=== PATIENT | male | born 1935 | race Caucasian/White ===

== ENCOUNTER 2018-12-27 12:56 | Emergency (ER) | payer OTHER ==
[2018-12-27] MEDS ORDERED: TETANUS & DIPHTHERIA TOX,ADULT 0.5 ML VIAL ONE (13:24)
--- NOTE | 2018-12-27 13:47 | RAD REPORT ---
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 Soft ti ssue swelling is seen along the dorsum of the hand. No acute fracture or dislocation seen. Radiopaque foreign body is not detected.
--- NOTE | 2018-12-27 14:16 | ER ---
Nurse's Notes [facility] Name: Live Tabor Age: 83 yrs Sex: Male : 1935 Arrival Date: 12/27/2018 Time: 12:59 Bed 27 Private MD: Diagnosis: Abrasion of left hand;Laceration without foreign body of right hand;Contusion of right hand Presentation: 12/27 13:12 Presenting complaint: Patient states: R hand pain and swelling after injury that ss occurred two days ago. Small laceration noted to side of hand. No bleeding noted at this time. Transition of care: patient was not received from another setting of care. Onset of symptoms was December 25, 2018. Risk Assessment: Do you want to hurt yourself or someone else? Patient reports no desire to harm self or others. Initial Sepsis Screen: Does the patient meet any 2 criteria? No. Patient's initial sepsis screen is negative. Does the patient have a suspected source of infection? No. Patient's initial sepsis screen is negative. Care prior to arrival: None. 13:12 Method Of Arrival: Ambulatory ss 13:12 Acuity: DEBRA 4 ss Triage Assessment: 13:34 Injury Description:. ca1 Historical: - Allergies: 13:12 No Known Allergies; ss - Home Meds: 13:12 losartan oral oral [Active]; ss - PMHx: 13:12 Hypertension; ss - PSHx: 13:12 bilateral shoulder repair; ss - Immunization history:: Adult Immunizations up to date, Last tetanus immunization: < 5 years ago. - Social history:: Smoking status: Patient/guardian denies using tobacco. - Ebola Screening: : Patient denies exposure to infectious person Patient denies travel to an Ebola-affected area in the 21 days before illness onset. Screenin:24 Abuse screen: Denies threats or abuse. Denies injuries from another. Nutritional ca1 screening: No deficits noted. Tuberculosis screening: No symptoms or risk factors identified. Fall Risk None identified. Assessment: 13:32 General: Appears in no apparent distress. comfortable, Behavior is calm, cooperative, ca1 appropriate for age. Pain: Complains of pain in right hand Pain currently is 7 out of 10 on a pain scale. Neuro: Level of Consciousness is awake, alert, obeys commands, Oriented to person, place, time, situation. Cardiovascular: Heart tones S1 S2 present Capillary refill < 3 seconds Patient's skin is warm and dry. Respiratory: Airway is patent Respiratory effort is even, unlabored, Respiratory pattern is regular, symmetrical, Breath sounds are clear bilaterally. GI: Abdomen is round non-distended, Bowel sounds present X 4 quads. Abd is soft and non tender X 4 quads. : No deficits noted. No signs and/or symptoms were reported regarding the genitourinary system. EENT: No deficits noted. No signs and/or symptoms were reported regarding the EENT system. Derm: Skin is intact, is healthy with good turgor, Skin is pink, warm \T\ dry. Musculoskeletal: Circulation, motion, and sensation intact. Capillary refill < 3 seconds, Range of motion: limited in right wrist Swelling present in right hand. 13:32 Injury Description: Laceration sustained to outer aspect of right palm is clean, ca1 superficial, 0.5 to 2.5 cm long, was sustained 2 days ago. no active bleeding noted at this time. 13:33 Reassessment: Refused tetanus shot. Reports to have a tetanus shot 3 years ago. ca1 notified provider. 13:57 Reassessment: Patient appears in no apparent distress at this time. Patient and/or ca1 family updated on plan of care and expected duration. Pain level reassessed. Patient is alert, oriented x 3, equal unlabored respirations, skin warm/dry/pink. Vital Signs: 13:12 BP 123 / 89; Pulse 66; Resp 17; Temp 98.0(TE); Pulse Ox 97% on R/A; Weight 86.18 kg; ss Height 5 ft. 9 in. (175.26 cm); Pain 3/10; 13:57 BP 138 / 88; Pulse 67; Resp 16 S; Pulse Ox 98% on R/A; ca1 13:12 Body Mass Index 28.06 (86.18 kg, 175.26 cm) ED Course: 12:59 Patient arrived in ED. mr 13:12 Arm band placed on left wrist. ss 13:13 Triage completed. ss 13:16 Rosie Benavides FNP-C is [facility]. kb 13:16 Rosales Rdz MD is Attending Physician. kb 13:23 Kandy Cagle, JOSE is Primary Nurse. ca1 13:24 Patient has correct armband on for positive identification. Bed in low position. Call ca1 light in reach. Side rails up X 1. Pulse ox on. NIBP on. 13:24 No provider procedures requiring assistance completed. Patient did not have IV access ca1 during this emergency room visit. 13:33 Hand Right 3 View XRAY In Process Unspecified. EDMS 14:17 Wound care: to laceration located on outer aspect of right palm was cleaned with ca1 Betadine, Patient tolerated well. Steri strips applied. Administered Medications: 13:32 Not Given (Patient Refused; Pt reports he had a tetanus shot 3 years ago): ca1 Tetanus-Diphtheria Toxoid Adult 0.5 ml IM once Outcome: 14:15 Discharge ordered by . rosemary 14:25 Discharged to home ambulatory, with significant other. ca1 14:25 Condition: stable 14:25 Discharge instructions given to patient, Instructed on discharge instructions, follow up and referral plans. medication usage, wound care, Demonstrated understanding of instructions, follow-up care, medications, wound care, Prescriptions given X 1. 14:26 Patient left the ED. ca1 Signatures: Dispatcher [employer] EDMA Rosie Benavides, SERA LINK-Chantal Kirkland mr Nikki Alvarez, JOSE RN ss Kandy Cagle RN RN ca1 Corrections: (The following items were deleted from the chart) 14:12 13:32 Musculoskeletal: Circulation, motion, and sensation intact. Capillary refill < 3 ca1 seconds, Range of motion: limited in right wrist Swelling present in right hand ca1
--- NOTE | 2018-12-27 14:17 | EDPHYS ---
Physician Documentation [facility] Name: Live Tabor Age: 83 yrs Sex: Male : 1935 Arrival Date: 12/27/2018 Time: 12:59 Bed 27 Private MD: KETAN Physician Rosales Rdz HPI: 12/27 14:10 This 83 yrs old Male presents to ER via Ambulatory with complaints of Hand kb Injury. 14:10 The patient or guardian reports injury, swelling. The complaints affect the dorsum of kb right hand and palm of right hand. Context: The problem was sustained at home, resulted from a fall. Onset: The symptoms/episode began/occurred 2 day(s) ago. Modifying factors: The symptoms are alleviated by nothing, the symptoms are aggravated by nothing. Associated signs and symptoms: The patient has no apparent associated signs or symptoms. Severity of symptoms: At their worst the symptoms were moderate, in the emergency department the symptoms are unchanged. The patient has not experienced similar symptoms in the past. The patient has not recently seen a physician. Pt reports he fell 2 days ago. Came in today because he was concerned about swelling of right hand. Has 2cm laceration to left palm and abrasions to third through fifth digits on left hand. . Historical: - Allergies: 13:12 No Known Allergies; ss - Home Meds: 13:12 losartan oral oral [Active]; ss - PMHx: 13:12 Hypertension; ss - PSHx: 13:12 bilateral shoulder repair; ss - Immunization history:: Adult Immunizations up to date, Last tetanus immunization: < 5 years ago. - Social history:: Smoking status: Patient/guardian denies using tobacco. - Ebola Screening: : Patient denies exposure to infectious person Patient denies travel to an Ebola-affected area in the 21 days before illness onset. ROS: 14:10 Constitutional: Negative for fever, chills, and weight loss, Neck: Negative for injury, kb pain, and swelling, Cardiovascular: Negative for chest pain, palpitations, and edema, Respiratory: Negative for shortness of breath, cough, wheezing, and pleuritic chest pain, Abdomen/GI: Negative for abdominal pain, nausea, vomiting, diarrhea, and constipation, Neuro: Negative for headache, weakness, numbness, tingling, and seizure. 14:10 Skin: Positive for abrasion(s), laceration(s), swelling. Exam: 14:13 Constitutional: This is a well developed, well nourished patient who is awake, alert, kb and in no acute distress. Head/Face: Normocephalic, atraumatic. Neck: Trachea midline, no thyromegaly or masses palpated, and no cervical lymphadenopathy. Supple, full range of motion without nuchal rigidity, or vertebral point tenderness. No Meningismus. Chest/axilla: Normal chest wall appearance and motion. Nontender with no deformity. No lesions are appreciated. Cardiovascular: Regular rate and rhythm with a normal S1 and S2. No gallops, murmurs, or rubs. Normal PMI, no JVD. No pulse deficits. Respiratory: Lungs have equal breath sounds bilaterally, clear to auscultation and percussion. No rales, rhonchi or wheezes noted. No increased work of breathing, no retractions or nasal flaring. Abdomen/GI: Soft, non-tender, with normal bowel sounds. No distension or tympany. No guarding or rebound. No evidence of tenderness throughout. Neuro: Awake and alert, GCS 15, oriented to person, place, time, and situation. Cranial nerves II-XII grossly intact. Motor strength 5/5 in all extremities. Sensory grossly intact. Cerebellar exam normal. Normal gait. 14:13 Musculoskeletal/extremity: Extremities: grossly normal except: noted in the right hand: laceration, pain, swelling, tenderness, noted in the palmar aspect of distal phalanx of left little finger, palmar aspect of distal phalanx of left ring finger and palmar aspect of distal phalanx of left middle finger: abrasion, ROM: no acute changes, Circulation is intact in all extremities. Sensation intact. Vital Signs: 13:12 BP 123 / 89; Pulse 66; Resp 17; Temp 98.0(TE); Pulse Ox 97% on R/A; Weight 86.18 kg; ss Height 5 ft. 9 in. (175.26 cm); Pain 3/10; 13:57 BP 138 / 88; Pulse 67; Resp 16 S; Pulse Ox 98% on R/A; ca1 13:12 Body Mass Index 28.06 (86.18 kg, 175.26 cm) MDM: 13:16 Patient medically screened. kb 14:13 Data reviewed: vital signs, nurses notes. Data interpreted: Pulse oximetry: on room air kb is 98 %. Interpretation: normal. Counseling: I had a detailed discussion with the patient and/or guardian regarding: the historical points, exam findings, and any diagnostic results supporting the discharge/admit diagnosis, radiology results, the need for outpatient follow up, a family practitioner, to return to the emergency department if symptoms worsen or persist or if there are any questions or concerns that arise at home. 12/27 13:17 Order name: Hand Right 3 View XRAY; Complete Time: 13:54 kb Administered Medications: 13:32 Not Given (Patient Refused; Pt reports he had a tetanus shot 3 years ago): ca1 Tetanus-Diphtheria Toxoid Adult 0.5 ml IM once Disposition: 12/28 06:42 Co-signature as Attending Physician, Rosales Rdz MD I agree with the assessment and sophia plan of care. Disposition: 12/27/18 14:15 Discharged to Home. Impression: Abrasion of left hand, Laceration without foreign body of right hand, Contusion of right hand. - Condition is Stable. - Discharge Instructions: Hand Contusion, [id number], Laceration Care, Adult, [id number]. - Prescriptions for Keflex 500 mg Oral Capsule - take 1 capsule by ORAL route every 8 hours for 7 days; 21 capsule. - Medication Reconciliation Form, Thank You Letter, Antibiotic Education, Prescription Opioid Use form. - Follow up: Emergency Department; When: As needed; Reason: Worsening of condition. Follow up: Private Physician; When: 2 - 3 days; Reason: Recheck today's complaints, Continuance of care, Re-evaluation by your physician. Signatures: Dispatcher [employer] Rosie Ribera, [employer]OT [employer]-C NIKOLAY-Rosales Carvalho MD MD cha Smirch, Shelby, RN RN ss Kandy Cagle RN RN ca1 Corrections: (The following items were deleted from the chart) 12/27 14:26 14:15 12/27/2018 14:15 Discharged to Home. Impression: Abrasion of left hand; ca1 Laceration without foreign body of right hand; Contusion of right hand. Condition is Stable. Forms are Medication Reconciliation Form, Thank You Letter, Antibiotic Education, Prescription Opioid Use. Follow up: Emergency Department; When: As needed; Reason: Worsening of condition. Follow up: Private Physician; When: 2 - 3 days; Reason: Recheck today's complaints, Continuance of care, Re-evaluation by your physician. kb
[2018-12-27 14:54] VITALS: TEMP 98
[2018-12-27 14:55] VITALS: BP 138/88; O2SAT 98
== END 2018-12-27 14:26 | disposition home or self-care (01) ==
LOC: ER 12:56
DX: S61.411A Laceration without foreign body of right hand, initial encounter (principal); W19.XXXA Unspecified fall, initial encounter; Y93.9 Activity, unspecified; Y92.009 Unspecified place in unspecified non-institutional (private) residence as the place of occurrence of the external cause; I10 Essential (primary) hypertension
CPT/HCPCS: 90714; 99284